=== PATIENT | male | born 1950 | race Caucasian/White ===

== ENCOUNTER 2023-02-20 10:22 | Day surgery (SDC) | payer OTHER, SELFPAY ==
[2023-02-20 10:48] VITALS: BP 139/91; PULSE 63; RESP 16; TEMP 36.7; O2SAT 96
[2023-02-20] MEDS: Tropicam./Phenyleph. (1/2.5%) 5 ML BTL OS ×3 (11:10→11:20)
[2023-02-20 11:32] VITALS: BMI 26.6
--- NOTE | 2023-02-20 11:32 | W.ANESPRE ---
General Info Date of Service Date Performed: 02/20/23 Height: 5 ft 10 in Weight: 84.1 kg Body Mass Index (BMI): 26.6 Surgical Procedure: Operation Date: 02/20/23 12:10 Proposed Procedure Side Surgeon p Cataract Extraction with IOL Implant Left Brody Leach MD Meds Allergies and Home Medications Allergies Allergy/AdvReac Type Severity Reaction Status Date / Time No Known Allergies Allergy Unverified 02/20/23 10:55 Home Medication Medication Instructions Recorded lisinopril 10 mg tablet 10 mg PO DAILY 02/19/23 Current Visit Medications: Current Medications Generic Name Dose Route Start Last Admin Trade Name Freq PRN Reason Stop Dose Admin Acetaminophen 1,000 mg 02/20/23 06:00 Acetaminophen 500 Mg Tab PO 03/22/23 05:59 Q4H PRN PRN Balanced Salt Solution 500 ml 02/20/23 06:00 Balanced Salt Soln.-Plus 500 Ml Bag OP 03/22/23 05:59 DIRECTED KYLAH Miscellaneous Medication 0 ml 02/20/23 06:00 Prednisolone 1%, Moxifloxacin 0.5%, Nepafenac 0.1% 5ml Btl OS 03/22/23 05:59 DIRECTED KYLAH Miscellaneous Medication 0 ml 02/20/23 06:00 02/20/23 11:20 Tropicam./Phenyleph. (1/2.5%) 5 Ml Btl OS 03/22/23 05:59 1 drp DIRECTED KYLAH Administration Tetracaine HCl 0 ml 02/20/23 06:00 Tetracaine 0.5% 4 Ml Btl OS 03/22/23 05:59 DIRECTED KYLAH PFSH Active Problems Active Problems: Problem Status Onset Code Nuclear age-related cataract, left eye H25.12 Medical History Medical History Hx of blurred vision Hx of glaucoma Hx of gonorrhea Hx of hepatitis Surgical History Surgical History (Updated 02/20/23 @ 10:55 by Ashley Butler) Hx of LASIK pt denies Tobacco Smoking/Tobacco Use Status: Former Tobacco Use Alcohol Alcohol Intake: former Substance Use Substance use type: former substance user and marijuana Vital Signs and Lab Results Vital Signs Most Recent Vital Signs in EMR: Most Recent Vital Signs Temp Pulse Resp BP Pulse Ox 36.7 C 63 16 139/91 H 96 07/07/23 10:48 02/20/23 10:48 02/20/23 10:48 02/20/23 10:48 02/20/23 10:48 Lab Results Blood Type / Crossmatch: No Data to Display Complete Blood Count: No Data to Display Complete Metabolic Panel: No Data to Display Liver Function Panel: No Data to Display Coagulation Panel: No Data to Display Cardiac Panel: No Data to Display Arterial Blood Gas: No Data to Display Venous Blood Gas: No Data to Display Pancreas Panel: No Data to Display Thyroid Panel: No Data to Display Infectious Disease: No Data to Display Blood Cultures: No Data to Display Toxicology Panel: No Data to Display Anesthesia Assessment and Plan Anesthesia History Personal History: No History of Anesthesia Complications Family History: No Family History of Anesthesia Complications Exercise Tolerance Exercise Tolerance: Metabolic Equivalents>4 Pertinent Negatives Pertinent Negatives: No Symptoms of GERD, No Major Cardiovascular Symptoms or Complaints and No Major Pulmonary Symptoms or Complaints Cardiac & Pulmonary Exam Cardiac Exam: Normal S1/S2 Heart Sounds Pulmonary Exam: Clear Bilateral Breath Sounds Implantable Cardiac Device Does patient have a Pacemaker or an ICD?: No Airway Exam Known Difficult Airway: No Mallampati Class: 1 Mouth Opening: Normal (> 3cm) Thyromental Distance: Greater than 3 cm Neck Range of Motion: Full ROM Neck Circumference: Normal Teeth Condition: Removable Dentures/Plates Upper ASA Classification ASA Score: ASA 2 Emergency Case?: No NPO Status NPO Status: NPO Clears >2 hours, Solids >8 hours Anesthesia Plan Resuscitation Status: Full Code Anesthesia Technique: MAC Anesthesia Airway Planned: Natural Airway Monitors Used: Standard Monitors
[2023-02-20] MEDS: Balanced Salt Soln.-PLUS 500 ML BAG OP (12:24)
[2023-02-20] MEDS: Tetracaine 0.5% 4 ML BTL OS (12:25)
[2023-02-20] MEDS: Duovisc Viscoelastic System EACH 1 EACH (12:25)
[2023-02-20] MEDS: Lidocaine 1% Pres-Free 5 ML VIAL (12:25)
[2023-02-20] MEDS: Phenylephrine/Lidocaine (15/10) MG/ML 1 ML VIAL (12:26)
[2023-02-20] MEDS: Povidone-Iodine Ophth 30 ML BTL (12:27)
[2023-02-20] MEDS: Trypan Blue 0.06% 0.5 ML SYR (12:49)
[2023-02-20 13:13] VITALS: BP 145/112; PULSE 58; RESP 16; TEMP 36.4; O2SAT 97
--- NOTE | 2023-02-20 13:21 | W.PM.DSUDISC ---
Date of service: 02/20/23 Time of Service: 13:21 Discharge Plan Disposition Patient Disposition: Home Discharge Details Attending Provider: Brody Leach Primary Care Provider: Esa Bravo Meds and New Rx's Prescriptions: No Action lisinopril 10 mg Tablet 10 mg PO DAILY Discharge Instructions Stand Alone Forms: Post-op Topical Cataract, Sirisha Early (DSU) Discharge Orders Discharge Orders: Discharge Order (Routine); Ordered 02/20/23 Ordered By: Brody Leach DS: Diagnosis Discharge Diagnosis (1) Nuclear age-related cataract, left eye: Status: Resolved
--- NOTE | 2023-02-20 13:23 | ROE_ITS ---
Date of service: 02/20/23 Time of Service: 13:24 Operative Note Operative Note DATE OF PROCEDURE: 02/20/23 PRE-OP DIAGNOSIS: Dense nuclear cataract, left eye Poorly dilating pupil, left eye Poor red reflex, left eye Hyperopia with very shallow anterior chamber, left eye POST-OP DIAGNOSIS: same PROCEDURE: Cataract extraction using phacoemulsification with intraocular lens implant, left eye Pupillary dilation and iris stabilization using iris hooks Capsular staining with VisionBlue SURGEON: Brody Leach ANESTHESIA TYPE: Local By Surgeon and MAC Refer to Anesthesia Record PATHOLOGY: none sent COMPLICATIONS: None Patient was transported to: same day Patient's condition: stable Implants: Sid and Sid Tecnis Eyhance DIB00 Indications: Progressive decreased vision due to cataract, left eye Procedure Description: CATARACT SURGERY OPERATIVE REPORT PREOPERATIVE DIAGNOSIS: 1. Dense nuclear cataract, left eye 2. Poorly dilating pupil, left eye 3. Poor red reflex, left eye secondary to dense cataract 4. Hyperopia with shallow anterior chamber, left eye POSTOPERATIVE DIAGNOSIS: Same OPERATION: 1. Cataract extraction using phacoemulsification with posterior chamber intr aocular lens implant, left eye. IOL: IOL [employer] Carrier/Model: Isd & Sid Tecnis Eyhance DIB00 IOL Power: + 28.5 diopters IOL Serial Number: [id number] Optic Diameter: 6.0 mm Haptic/Overall Diameter: 13.0 mm PHACO INFO: Vu Centurion Vision System with OZil and Active Fluidics Cumulative Dispersed Energy (CDE): 18.53 seconds SURGEON: Brody Leach MD, ROB ANESTHESIA: Monitored A [facility] (MAC), with local sub-tenon's anesthetic infiltration COMPLICATIONS: None SPECIMENS: None INDICATIONS FOR PROCEDURE: The patient is a 72-year-old male with history of hyperopia who presented with complaints of diminished visual acuity in his left eye. He is noted to have a dense nuclear cataract. Is also noted to have very shallow anterior chamber, of approximately 1.5 mm, with a poorly dilating pupil. The option of cataract surgery was offered to the patient and he wished to proceed. PROCEDURE: The correct surgical eye was identified and marked as the left eye and the pupil was dilated in the preoperative area using mydriatics and cycloplegics. The dilated pupil size was 3.5 mm mm.. The patient elected to proceed without oral sedation. The patient was brought to the operating room where cardiopulmonary monitoring was instituted and surgical time-out was performed, confirming the correct operative eye and IOL power. Topical anesthesia was administered and ophthalmic povidone-iodine 5% was instilled into the conjunctival fornices. The ginny-ocular area was prepped with Betadine 10% solution and draped in the usual sterile fashion for intraocular surgery, including an aperture drape. A Tegaderm transparent film dressing was cut in half and used to cover the lashes and lid margins. Care was taken to sequester the lashes and lid margins under the Tegaderm dressing. A lid speculum was placed between the lids of the operative eye and the Vu LuxOR Revalia operating microscope was maneuvered into position. Naveen scissors were then used to make a conjunctival buttonhole approximately 6mm posterior to the limbus in the inferonasal quadrant. Blunt dissection was carried out to expose bare sclera, and a blunt-tipped sub-tenon?s anesthesia cannula was introduced and passed posteriorly along the globe where non- preserved plain lidocaine was injected into posterior sub-Tenon?s space. A sideport knife was used to make a paracentesis port. Intraocular phenylephrine/lidocaine was injected into the anterior chamber.. The anterior chamber was filled with viscoelastic. Viscoat was used initially to deepen the anterior chamber, which did not deepen very much. A keratome knife was used to construct a 2-plane near-clear corneal tunnel extending 2.0mm into clear cornea. A Kuglen hook was used to stretch the pupil in multiple meridians. Some posterior synechia were noted. No additional pupillary dilation was achieved with pupil stretching, so 4 paracentesis ports were made and iris hooks were placed. The Viscoat was then removed from the anterior chamber and air was injected into the anterior chamber, followed by VisionBlue which was painted over the lens capsule and then irrigated out with balanced salt solution. The anterior chamber was then filled again with Viscoat. A flap was raised on the anterior capsule and capsulorhexis forceps were used to complete a continuous curvilinear capsulorhexis of 5.0 mm. Balanced salt solution was then used to perform cortical cleaving hydrodissection and nuclear hydrodelineation until the lens could be freely rotated within the capsular bag. The lens nucleus was then disassembled and removed within the capsular bag and iris plane using phacoemulsification. A deep central groove was sculpted and nuclear splitters were then used to crack the nucleus into 2 halves. Each nuclear half was then subtyped into multiple fragments. Additional Viscoat was introduced during phacoemulsification to protect the corneal endothelium due to the shallow anterior chamber. Residual cortical material was removed using the irrigation/aspiration handpiece. The posterior capsule was carefully polished to remove as much residual lens epithelial cells as safely possible. The capsular bag was then inflated and the anterior chamber deepened with viscoelastic. The lens implant described above was inserted into the capsular bag using the Sid and ExpertFlyer pre- loaded injector. A Kuglen hook was used to dial the IOL into position. The iris hooks were then removed in the reverse order of their insertion. Residual viscoelastic was then removed first from posterior to the IOL, then from the anterior chamber using the I/A handpiece. The lens implant was noted to center nicely within the capsular bag. The incisions were stromally hydrated, and the anterior chamber was reformed using BSS. Then 0.5cc of moxifloxacin 1.0mg/ml were injected into the capsular bag and anterior chamber. The incisions were checked with a Weck spear and found to be secure. Several drops of ophthalmic povidone-iodine 5% were then applied to the eye followed by two drops of Imprimis combination prednisolone/moxifloxacin/nepafenac solution. The drapes were removed and a clear plastic protective eye shield was placed over the eye. The patient was then returned to Same Day Surgery in stable condition.
[2023-02-20 13:31] VITALS: BP 144/94; PULSE 59; RESP 16; TEMP 36.5; O2SAT 97
--- NOTE | 2023-02-20 13:31 | W.ANESPOSTOP ---
Postoperative Evaluation Date, Time and Location Date Performed: 02/20/23 Time Performed: 13:31 Patient Location: Day Surgery Unit Vital Signs Most Recent Imported Vital Signs: Most Recent Vital Signs Temp Pulse Resp BP Pulse Ox 36.4 C L 58 L 16 145/112 H 97 02/20/23 13:13 02/20/23 13:13 02/20/23 13:13 02/20/23 13:13 02/20/23 13:13 Assessment Mental Status: Awake (Alert & Oriented to Patient Baseline) Airway and Respiratory Function: Patent airway with normal (patient baseline) respiratory exam Cardiovascular Function: Hemodynamically Stable Hydration Status: Adequately Hydrated Nausea & Vomiting: No Nausea or Vomiting Pain: Pt. Denies Any Pain Peripheral Nerve Block: Patient did not receive a nerve block
== END 2023-02-20 13:30 | disposition home or self-care (01) ==
PROVIDERS: PCP Internal Medicine; Visit Provider Ophthalmology
PROC: (CPT 66982; principal; 2023-02-20 12:00)
DX: H25.12 Age-related nuclear cataract, left eye (principal); H52.02 Hypermetropia, left eye
CPT/HCPCS: 66982; V2632

== ENCOUNTER → 2023-11-05 09:59 | Outpatient (BNVA) | payer OTHER, SELFPAY | PROVIDERS: PCP Registered Nurse; Referring Provider Registered Nurse; Visit Provider Physician Assistant Surgical | DX: J43.9 Emphysema, unspecified (principal); R06.2 Wheezing; R05.3 Chronic cough | CPT/HCPCS: 99205 ==

== ENCOUNTER → 2024-01-21 13:58 | Outpatient (BNVA) | payer OTHER, SELFPAY | PROVIDERS: PCP Registered Nurse; Referring Provider Registered Nurse; Visit Provider Student in an Organized Health Care Education/Training Program | DX: J43.9 Emphysema, unspecified (principal) | CPT/HCPCS: 99214 ==